=== PATIENT | female | born 1985 | race Caucasian/White ===

== ENCOUNTER → 2017-05-03 | Outpatient (CLI) | payer OTHER ==
--- NOTE | 2017-05-03 11:42 | MR ---
EXAMINATION TYPE: MR lumbar spine wo con DATE OF EXAM: 05/03/2017 COMPARISON: NONE HISTORY: Lumbago with sciatica TECHNIQUE: T1 and T2 axial and sagittal images of the lumbar spine are submitted. FINDINGS: There is no abnormal signal seen within the visualized spinal cord or paraspinal soft tissu es. At L1-2 there is no degenerative disc disease, disc herniation, canal stenosis or foraminal encroachm ent. At L2-3 there is no degenerative disc disease, disc herniation, canal stenosis or foraminal encroachm ent. At L3-4 there is no degenerative disc disease, disc herniation, canal stenosis or foraminal encroachm ent. At L4-5 there is no degenerative disc disease, disc herniation, canal stenosis or foraminal encroachm ent. At L5-S1 there is no degenerative disc disease, disc herniation, canal stenosis or foraminal encroach ment. IMPRESSION: 1. No degenerative disc disease, disc herniation, canal stenosis or foraminal encroachment.
== END | disposition home or self-care (01) ==
LOC: RADMRIMAIN 10:27
PROVIDERS: ATTEND Internal Medicine
DX: M54.40 Lumbago with sciatica, unspecified side (principal)
CPT/HCPCS: 72148

== ENCOUNTER → 2020-12-28 | Outpatient (CLI) | payer BC ==
[2020-12-28 19:39] LABS: HCT 41.8 % (37.2-46.3); HGB 14.1 g/dL (12.0-15.0); MCH 30.1 pg (27.0-32.0); MCHC 33.7 g/dL (32.0-37.0); MCV 89.1 fL (80.0-97.0); Mean Platelet Volume 11.4 fL (9.5-12.2); Platelet Count 303 X 10*3/uL (140-440); RBC 4.69 X 10*6/uL (4.10-5.20); RDW 12.2 % (11.5-14.5)
[2020-12-28 20:23] LABS: Hemoglobin A1C 4.4 % (4.0-6.0)
[2020-12-28 20:58] LABS: ALT 30 U/L (8-44); AST 29 U/L (13-35); African American GFR (CKD) 111.5 (60.0-200.0); Albumin/Globulin Ratio 2.71 (1.60-3.17); Alkaline Phosphatase 48 U/L (41-126); BUN/Creat Ratio 13.75 Ratio (12.00-20.00); C Reactive Protein <0.4 mg/dL (0.0-0.8); Calcium 9.1 mg/dL (8.7-10.3); Carbon Dioxide 24.6 mmol/L (21.6-31.8); Chloride 106 mmol/L (96-109); Creatine Kinase 125 U/L (26-186); Globulin 1.7 g/dL (1.6-3.3); Glucose 84 mg/dL (70-110); Magnesium 1.9 mg/dL (1.5-2.4); Non-African American GFR(CKD) 96.2 (60.0-200.0); Potassium 4.1 mmol/L (3.5-5.5); Sodium 140 mmol/L (135-145); Total Bilirubin 0.4 mg/dL (0.2-1.2); Total Protein 6.3 g/dL (6.2-8.2)
[2020-12-28 21:35] LABS: Erythrocyte Sedimentation Rate 4 mm/Hr (0-20)
[2020-12-29 07:35] LABS: Anti-Smith Ab Interp NEGATIVE (NEGATIVE)
[2020-12-29 13:53] LABS: Vitamin D, 1, 25-Dihydroxy 39 pg/mL (20 - 79)
== END | disposition home or self-care (01) ==
LOC: LABWHC1 10:18
PROVIDERS: ATTEND Nurse Practitioner Family
DX: M79.7 Fibromyalgia (principal); E55.9 Vitamin D deficiency, unspecified; E53.8 Deficiency of other specified B group vitamins
CPT/HCPCS: 36415; 80053; 82306; 82550; 82607; 82652; 83036; 83519; 83735; 84207; 84425; 84446; 84590; 84591; 84597; 85027; 85652; 86140; 86235

== ENCOUNTER → 2021-04-11 | Outpatient (CLI) | payer BC ==
--- NOTE | 2021-04-11 10:42 | US ---
EXAMINATION TYPE: US gallbladder DATE OF EXAM: 04/11/2021 COMPARISON: NONE CLINICAL HISTORY: K52.832 lymphocytic colitis, R19.7 acute diarrhea,. Chronic diarrhea, RUQ pain EXAM MEASUREMENTS: Liver Length: 18.1 cm Gallbladder Wall: 0.2 cm CBD: 0.5 cm Right Kidney: 10.5 x 4.1 x 4.6cm *Technical limitations due to overlying bowel content Pancreas: Obscured by bowel gas Liver: enlarged, heterogeneous Gallbladder: no evidence of stones Evidence for sonographic Vega's sign: no CBD: appears wnl as visualized Right Kidney: no evidence of hydronephrosis IMPRESSION: 1. Limited study due to overlying bowel gas. The pancreas is not visualized due to overlying bowel ga s. 2. Heterogeneous coarse appearing liver is enlarged. A CT or MRI using liver protocol with IV contras t, multiphase is recommended. 3. No gallstones. Gallbladder wall is within normal limits. No pericholecystic fluid. 4. No renal calculi or hydronephrosis of the right kidney. 5. The common duct is within normal limits. No ascites is seen.
== END | disposition home or self-care (01) ==
LOC: RADUSWWP 09:45
PROVIDERS: ATTEND Internal Medicine
DX: K52.832 Lymphocytic colitis (principal); R16.0 Hepatomegaly, not elsewhere classified
CPT/HCPCS: 76705

== ENCOUNTER → 2021-05-07 | Outpatient (CLI) | payer BC ==
--- NOTE | 2021-05-07 11:02 | MR ---
MR liver without and with contrast, MRCP HISTORY: R 10.11, K 76.0 Multiplanar multisequence and postcontrast images obtained to the liver following 10.5 cc Gadavist IV . Three-dimensional reconstructions performed through the biliary system. Correlation ultrasound gallbladder 04/11/2021 There is motion, artifact on the exam. The liver is enlarged measuring approximately 21.4 cm in cephalad to caudal dimension. Signal drop on out of phase imaging is consistent with underlying hepatic steatosis. There is no evident liver mass . Gallbladder shows no stone, there is no dilated intra or extrahepatic biliary duct. No abnormal enh ancement following contrast administration. There is no retroperitoneal adenopathy or ascites. Aorta shows normal caliber. Pancreas, adrenal glands, kidneys, spleen are within normal limits. Lung bases show no pleural effusion. Biliary system shows no filling defect to suggest stone. Visualized bone marrow signal is within norm al limits. No evident bowel obstruction. IMPRESSION: Findings consistent with hepatic steatosis. There is hepatomegaly.
== END | disposition home or self-care (01) ==
LOC: RADMRIMAIN 08:51
PROVIDERS: ATTEND Internal Medicine
DX: K76.0 Fatty (change of) liver, not elsewhere classified (principal); R16.0 Hepatomegaly, not elsewhere classified
CPT/HCPCS: 74183; A9585

== ENCOUNTER 2021-06-08 17:13 | Emergency (ER) | payer BC, OTHER ==
[2021-06-08 17:21] VITALS: BP 177/74; PULSE 96; RESP 16; TEMP 99
[2021-06-08] MEDS ORDERED: CYCLOBENZAPRINE 10 MG TAB PO STA (17:52)
--- NOTE | 2021-06-08 18:51 | XR ---
EXAMINATION TYPE: XR chest 2V DATE OF EXAM: 06/08/2021 COMPARISON: NONE HISTORY: Pain TECHNIQUE: 2 views FINDINGS: Heart and mediastinum are normal. Lungs are clear. Diaphragm is normal. Bony thorax appears normal. IMPRESSION: Normal chest.
[2021-06-08] MEDS ORDERED: CYCLOBENZAPRINE 10MG STARTER 3 TAB BTL PO STA (19:15)
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
== END 2021-06-08 19:41 | disposition home or self-care (01) ==
LOC: EC 17:13
DX: R07.89 Other chest pain (principal); F17.200 Nicotine dependence, unspecified, uncomplicated; F12.90 Cannabis use, unspecified, uncomplicated; Z88.0 Allergy status to penicillin; Z88.2 Allergy status to sulfonamides; V89.2XXA Person injured in unspecified motor-vehicle accident, traffic, initial encounter; Y92.410 Unspecified street and highway as the place of occurrence of the external cause
CPT/HCPCS: 71046; 99285

== ENCOUNTER → 2021-06-08 | Outpatient (CLI) | payer BC | LOC: LAB 08:30 | PROVIDERS: ATTEND Internal Medicine | DX: K52.832 Lymphocytic colitis (principal); K90.9 Intestinal malabsorption, unspecified; Z88.0 Allergy status to penicillin; Z88.2 Allergy status to sulfonamides; Z88.8 Allergy status to other drugs, medicaments and biological substances | CPT/HCPCS: 82656; G0328 ==

== ENCOUNTER → 2021-06-12 | Outpatient (CLI) | payer BC | END | disposition home or self-care (01) | LOC: LABWHC1 11:50 | PROVIDERS: ATTEND Nurse Practitioner Family | DX: E21.5 Disorder of parathyroid gland, unspecified (principal) | CPT/HCPCS: 36415; 83970; 84439; 84443; 84481 ==

== ENCOUNTER → 2021-06-12 | Outpatient (CLI) | payer BC | END | disposition home or self-care (01) | LOC: LABWHC1 11:51 | PROVIDERS: ATTEND Internal Medicine | DX: Z53.9 Procedure and treatment not carried out, unspecified reason (principal) ==

== ENCOUNTER → 2021-09-07 | Outpatient (CLI) | payer BC ==
--- NOTE | 2021-09-07 09:09 | MR ---
EXAMINATION TYPE: MR lumbar spine wo con DATE OF EXAM: 09/07/2021 COMPARISON: 05/03/2017 HISTORY: Radiculopathy, stiffness, pain, weakness in legs TECHNIQUE: T1 and T2 axial and sagittal images of the lumbar spine are submitted. FINDINGS: There is no abnormal signal seen within the visualized spinal cord or paraspinal soft tissu es. Cystic lesion in the left adnexa measuring 3.6 cm. At L1-2 there is no degenerative disc disease, disc herniation, canal stenosis or foraminal encroachm ent. At L2-3 there is no degenerative disc disease, disc herniation, canal stenosis or foraminal encroachm ent. At L3-4 there is no degenerative disc disease, disc herniation, canal stenosis or foraminal encroachm ent. At L4-5 there is no degenerative disc disease, disc herniation, canal stenosis or foraminal encroachm ent. At L5-S1 there is no degenerative disc disease, disc herniation, canal stenosis or foraminal encroach ment. IMPRESSION: 1. Normal MRI lumbar spine. 2. There is a 3.6 cm cystic adnexal lesion on the left recommend pelvic ultrasound.
== END | disposition home or self-care (01) ==
LOC: RADMRIMAIN 07:42
PROVIDERS: ATTEND Family Medicine
DX: M54.16 Radiculopathy, lumbar region (principal)
CPT/HCPCS: 72148

== ENCOUNTER → 2021-09-07 | Outpatient (CLI) | payer BC, OTHER ==
--- NOTE | 2021-09-07 09:15 | MR ---
EXAMINATION TYPE: MR cervical spine wo con DATE OF EXAM: 09/07/2021 COMPARISON: HISTORY: Cervical strain, inflammatory spondylopathy, stiffness, clicking, schreiber, pain TECHNIQUE: Multiplanar, multisequence images of the cervical spine were acquired without contrast. C2-C3: No evidence for degenerative disc disease. No disc bulge/herniation or protrusion. No Canal stenosis. Foramina are patent bilaterally. C3-C4: No evidence for degenerative disc disease. No disc bulge/herniation or protrusion. No Canal stenosis. Foramina are patent bilaterally. Mild uncovertebral joint hypertrophy. C4-C5: No evidence for degenerative disc disease. No disc bulge/herniation or protrusion. No Canal stenosis. Foramina are patent bilaterally. Mild uncovertebral joint hypertrophy. C5-C6: Mild bilateral uncovertebral joint hypertrophy. There is broad-based central left paracentral disc bulging but no canal stenosis, spinal cord contact or foraminal encroachment C6-C7: No evidence for degenerative disc disease. No disc bulge/herniation or protrusion. No Canal stenosis. Foramina are patent bilaterally. C7-T1: No evidence for degenerative disc disease. No disc bulge/herniation or protrusion. No Canal stenosis. Foramina are patent bilaterally. Cervical segments are intact. There is normal alignment. Cervical spinal cord is of normal signal. Craniovertebral junction relationships are within normal limits. There is a prominent cisterna magn a. IMPRESSION: 1. Mild broad-based central and left paracentral disc bulging C5-C6 with no evidence of disc herniati on, canal stenosis or foraminal encroachment. 2. Multilevel mild uncovertebral joint hypertrophy. 3. Findings suggest prominent cisterna magna or small posterior fossa arachnoid cyst. No previous MR or CT of the brain available for comparison correlate clinically. If clinically warranted consider MR I brain.
== END | disposition home or self-care (01) ==
LOC: RADMRIMAIN 07:30
PROVIDERS: ATTEND Family Medicine
DX: M50.222 Other cervical disc displacement at C5-C6 level (principal)
CPT/HCPCS: 72141

== ENCOUNTER → 2021-10-17 | Outpatient (CLI) | payer BC ==
--- NOTE | 2021-10-17 13:52 | MR ---
EXAMINATION TYPE: MR brain wo/w con DATE OF EXAM: 10/17/2021 COMPARISON: Outside MRI reports only. HISTORY: Arachnoid cyst of posterior cranial fossa TECHNIQUE: Multiplanar, multisequence images of the brain and brainstem is performed without and with IV contras t, utilizing 10 mL intravenous Gadavist . FINDINGS: Diffusion weighted images demonstrate no evidence of a recent infarct or other diffusion ab normality. There is no extra-axial fluid collection or significant white matter signal abnormality. The ventricular system and cisternal spaces are normal in size and appearance. The brain volume is age appropriate. Midline structures demonstrate normal morphology. The craniocervical junction appears within normal limits. Slight asymmetric CSF prominence central inferior left posterior fossa measuring 1.3 x 1.0 c m could reflect tiny arachnoid cyst. Post contrast images demonstrate no abnormal enhancement. The du ral venous sinuses appear patent. The visualized sinuses are clear and the globes are intact. IMPRESSION: Possible incidental tiny 1.3 cm inferior arachnoidal cyst just left of midline in the pos terior fossa.
== END | disposition home or self-care (01) ==
LOC: RADMRIMAIN 07:22
PROVIDERS: ATTEND Family Medicine
DX: G93.0 Cerebral cysts (principal)
CPT/HCPCS: 70553; A9585

== ENCOUNTER → 2021-10-17 | Outpatient (CLI) | payer BC ==
--- NOTE | 2021-10-17 08:54 | US ---
EXAMINATION TYPE: US pelvic complete DATE OF EXAM: 10/17/2021 COMPARISON: NONE CLINICAL HISTORY: G93.0 CYSTIC ADNEXAL LT ADNEXAL LESION. Oct MRI showed left 3.6cm cystic lesion, pt has h/o ovarian cysts, no pelvic pain, 2 c-sections TECHNIQUE: TA. Transabdominal sonographic images of the pelvis were acquired. Date of LMP: 10-01-2021 EXAM MEASUREMENTS: Uterus: 11.1 x 5.4 x 4.2 cm Endometrial Stripe: 1.5 cm Right Ovary: 2.9 x 2.6 x 2.3 cm Left Ovary: 2.8 x 2.4 x 2.1 cm 1. Uterus: Anteverted wnl 2. Endometrium: wnl 3. Right Ovary: wnl 4. Left Ovary: wnl 5. Bilateral Adnexa: wnl 6. Posterior cul-de-sac: wnl IMPRESSION: 1. Normal pelvic ultrasound. 2. Previous left ovarian cyst may have resolved over the interval.
== END | disposition home or self-care (01) ==
LOC: RADUSWWP 07:02
PROVIDERS: ATTEND Family Medicine
DX: Z03.89 Encounter for observation for other suspected diseases and conditions ruled out (principal)
CPT/HCPCS: 76856

== ENCOUNTER → 2022-04-26 | Outpatient (CLI) | payer OTHER ==
[2022-04-26 18:46] LABS: ALT 26 U/L (8-44); AST 18 U/L (13-35); Albumin 4.3 g/dL (3.8-4.9); Albumin/Globulin Ratio 1.95 (1.60-3.17); Alkaline Phosphatase 42 U/L (41-126); Bilirubin, Conjugated <0.20 mg/dL (0.20-0.40); C Reactive Protein <0.30 mg/dL (0.00-0.80); Erythrocyte Sedimentation Rate 1 mm/Hr (0-20); Globulin 2.2 g/dL (1.6-3.3); Total Protein 6.5 g/dL (6.2-8.2)
[2022-04-26 18:49] LABS: Basophils # (A) 0.03 X 10*3/uL (0.00-0.10); Basophils % (A) 0.3 %; Eosinophils # (A) 0.18 X 10*3/uL (0.04-0.35); Eosinophils % (A) 2.1 %; HCT 42.6 % (37.2-46.3); HGB 14.2 g/dL (12.0-15.0); Immature Grans, Automated 0.7 %; Lymphocytes # (A) 2.36 X 10*3/uL (0.90-5.00); Lymphocytes % (A) 27.3 %; MCH 30.4 pg (27.0-32.0); MCHC 33.3 g/dL (32.0-37.0); MCV 91.2 fL (80.0-97.0); Monocytes # (A) 0.81 X 10*3/uL (0.20-1.00); Monocytes % (A) 9.4 %; NRBC Per 100 WBC 0 /100 WBCS (0.0-0.0); Neutrophils % (A) 60.2 %; Platelet Count 251 X 10*3/uL (140-440); RBC 4.67 X 10*6/uL (4.10-5.20); RDW 11.9 % (11.5-14.5); WBC 8.64 X 10*3/uL (4.50-10.00)
== END | disposition home or self-care (01) ==
LOC: LABWHC1 11:11
PROVIDERS: ATTEND Internal Medicine
DX: Z51.81 Encounter for therapeutic drug level monitoring (principal); M06.09 Rheumatoid arthritis without rheumatoid factor, multiple sites; D84.9 Immunodeficiency, unspecified
CPT/HCPCS: 36415; 80076; 85025; 85652; 86140

== ENCOUNTER → 2022-05-24 | Outpatient (CLI) | payer OTHER ==
--- NOTE | 2022-05-25 02:44 | MR ---
EXAMINATION TYPE: MR femur/thigh RT wo/w con DATE OF EXAM: 05/24/2022 COMPARISON: HISTORY: Abnormal levels CK serum enzymes. Auto immune issues, Dermatomyositis, lower extremity weakn ess CONTRAST: Standard multiplanar, multisequence MRI departmental protocol images were obtained without contrast a nd with 9 mL intravenous Gadavist gadolinium contrast. Muscle bundles of the left and right thigh appear fairly symmetric and normal in size and contour. No pathologic fluid collection. No evidence of subcutaneous mass. Left and right femur appear intact. C ontrast images show no pathologic enhancement. No evidence of focal bone destruction. IMPRESSION: Negative MR scan of the right thigh.
== END | disposition home or self-care (01) ==
LOC: RADMRIMAIN 20:36
PROVIDERS: ATTEND Internal Medicine
DX: R74.8 Abnormal levels of other serum enzymes (principal); R29.898 Other symptoms and signs involving the musculoskeletal system
CPT/HCPCS: 73720; A9585

== ENCOUNTER → 2022-07-03 | Outpatient (CLI) | payer OTHER ==
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
== END | disposition home or self-care (01) ==
LOC: RADXRMAIN 10:31
PROVIDERS: ATTEND Internal Medicine
DX: M79.641 Pain in right hand (principal); M79.642 Pain in left hand; M25.561 Pain in right knee; M25.562 Pain in left knee

== ENCOUNTER → 2022-08-01 | Outpatient (CLI) | payer MEDICARE, OTHER ==
--- NOTE | 2022-08-01 10:04 | US ---
EXAMINATION TYPE: US thyroid st tissue head/neck DATE OF EXAM: 08/01/2022 COMPARISON: MRI cervical spine September 07, 2021 CLINICAL HISTORY: R22.1 LOCALIZED SWELLING, MASS AND LUMP, NECK. Swelling within right neck x 6 month s. GLAND SIZE: Right Lobe: 5.1 x 2.6 x 1.9 cm Overall Parenchyma: homogenous Left Lobe: 6.1 x 2.2 x 2.2 cm Overall Parenchyma: homogeneous Isthmus Thickness: 0.5 cm NODULES RIGHT: # of nodules measured on right: 3 1. Right isthmus/right thyroid lobe: 3.6 X 3.2 x 2.0 cm, mid-inf medial, mixed cystic and solid, iso echoic nodule, which is wider than tall, with smooth margins, without echogenic foci. TR 2 lesion. Prior size: No prior 2. 1.8 X 1.7 x 1.5 cm, lower lateral, solid or almost completely solid, isoechoic nodule, which is wider than tall, with smooth margins, without echogenic foci. TR 3 lesion. Prior size: No prior 3. 1.1 X 1.1 x 0.9 cm, lower lateral, mixed cystic and solid, isoechoic nodule, which is wider than tall, with smooth margins, without echogenic foci. TR2 lesion. Prior size: No prior LEFT: # of nodules measured on left: 2 1. 2.1 X 1.9 x 1.7 cm, lower mid-inf, solid or almost completely solid, isoechoic nodule, which is wider than tall, with smooth margins, without echogenic foci. TR3 Prior size: No prior 2. 2.3 X 1.7 x 1.1 cm, mid medial, solid or almost completely solid, isoechoic nodule, which is wi gaurang than tall, with smooth margins, without echogenic foci. TR3 Prior size: No prior ISTHMUS: # of nodules measured in the isthmus: Nodule mentioned above appears to be within isthmu s/right thyroid lobe. Bilateral neck scanned, Hypoechoic area with hyperechoic center seen right neck just inferior to the jawline measurin.6 x 2.2 x 0.8 cm. Prominent lymph node with retention of central fatty hilum but some eccentric cortical thickening IMPRESSION: Findings consistent with multinodular goiter. Follow up ultrasound scanning in one year. 2017 ACR TI-RADS LEVEL: TR-RADS 3 - Mildly Suspicious: Follow if > 1.5 cm, FNA if > 2.5 cm *Highest TI-RADS level nodule reported
== END | disposition home or self-care (01) ==
LOC: RADUSWWP 09:01
PROVIDERS: ATTEND Family Medicine
DX: E04.2 Nontoxic multinodular goiter (principal)
CPT/HCPCS: 76536

== ENCOUNTER → 2022-10-15 | Outpatient (CLI) | payer OTHER ==
[2022-10-15 18:55] LABS: Testosterone 12.1 ng/mL (9.01-47.94)
[2022-10-15 19:09] LABS: Estradiol 95.4 pg/mL; Luteinizing Hormone 4.1 mIU/mL
== END | disposition home or self-care (01) ==
LOC: LABWHC1 11:42
PROVIDERS: ATTEND Internal Medicine
DX: E55.9 Vitamin D deficiency, unspecified (principal); L65.9 Nonscarring hair loss, unspecified; E04.2 Nontoxic multinodular goiter
CPT/HCPCS: 36415; 82306; 82627; 82670; 83001; 83002; 84402; 84403; 84439; 84443

== ENCOUNTER → 2022-11-20 | Outpatient (CLI) | payer OTHER ==
--- NOTE | 2022-11-20 15:20 | US ---
EXAMINATION TYPE: US thyroid st tissue head/neck DATE OF EXAM: 11/20/2022 COMPARISON: US CLINICAL HISTORY: E04.2 Nontoxic multinodular goiter. F/U Nodules GLAND SIZE: Right Lobe: 5.7 x 1.9 x 1.9 cm Overall Parenchyma: heterogenous Left Lobe: 6.5 x 2.4 x 2.1 cm Overall Parenchyma: heterogeneous Isthmus Thickness: 0.6 cm NODULES RIGHT: # of nodules measured on right: 3 1. 3.6 X 2.0 x 2.9 cm, mid medial, mixed cystic and solid, isoechoic nodule, which is wider than ta ll, with smooth margins, without echogenic foci. Prior size: 3.6 x 2.0 x 3.2 cm 2. 1.6 X 1.5 x 1.5 cm, lower, solid or almost completely solid, isoechoic nodule, which is wider th an tall, with smooth margins, without echogenic foci. Prior size: 1.8 x 1.5 x 1.7 cm 3. 1.0 X 0.7 x 1.0 cm, mid, mixed cystic and solid, isoechoic nodule, which is wider than tall, wit h smooth margins, without echogenic foci. Prior size: 1.1 x 0.9 x 1.1 cm LEFT: # of nodules measured on left: 2 1. 2.8 X 1.7 x 2.1 cm, lower, solid or almost completely solid, isoechoic nodule, which is wider th an tall, with smooth margins, without echogenic foci. TR 3 Prior size: 2.1 x 1.7 x 1.9 cm 2. 2.2 X 1.1 x 1.8 cm, mid, solid or almost completely solid, isoechoic nodule, which is wider cindy n tall, with smooth margins, without echogenic foci. Prior size: 2.3 x 1.1 x 1.7 cm ISTHMUS: # of nodules measured in the isthmus: 0 Bilateral neck scanned, no evidence of lymphadenopathy. Normal appearing lymph node right lateral nec k. Stable nodules bilaterally with slight increase in size with left nodule lower. IMPRESSION: Mildly suspicious nodule left lobe thyroid fine-needle aspiration of the enlarging nodule is recommen ded. 2017 ACR TI-RADS LEVEL: TR-RADS 3 - Mildly Suspicious: Follow if > 1.5 cm, FNA if > 2.5 cm *Highest TI-RADS level nodule reported
== END | disposition home or self-care (01) ==
LOC: RADUSWWP 14:23
PROVIDERS: ATTEND Internal Medicine
DX: E04.2 Nontoxic multinodular goiter (principal)
CPT/HCPCS: 76536

== ENCOUNTER → 2022-11-28 | Outpatient (CLI) | payer OTHER | END | disposition home or self-care (01) | LOC: LABWHC1 15:17 | PROVIDERS: ATTEND Surgery | DX: Z86.39 Personal history of other endocrine, nutritional and metabolic disease (principal) | CPT/HCPCS: 36415; 83970 ==

== ENCOUNTER → 2022-12-10 | Outpatient (CLI) | payer OTHER ==
[2022-12-10 19:46] LABS: African American GFR (CKD) 106.7 (60.0-200.0); Albumin 4.3 g/dL (3.8-4.9); Albumin/Globulin Ratio 2.12 (1.60-3.17); Anion Gap 11.7 mmol/L (10.00-18.00); BUN/Creat Ratio 13.78 Ratio (12.00-20.00); Blood Urea Nitrogen 11.3 mg/dL (9.0-27.0); Calcium 9.2 mg/dL (8.7-10.3); Non-African American GFR(CKD) 92.1 (60.0-200.0); Potassium 4.2 mmol/L (3.5-5.5); T4, Free (Free Thyroxine) 1.09 ng/dL (0.800-1.800); Total Bilirubin 0.3 mg/dL (0.30-1.20); Total Protein 6.3 g/dL (6.2-8.2)
== END | disposition home or self-care (01) ==
LOC: LABWHC1 13:14
PROVIDERS: ATTEND Internal Medicine
DX: E04.2 Nontoxic multinodular goiter (principal); E55.9 Vitamin D deficiency, unspecified
CPT/HCPCS: 36415; 80053; 82306; 84439; 84443

== ENCOUNTER → 2023-11-21 | Outpatient (CLI) | payer OTHER ==
--- NOTE | 2023-11-22 06:17 | MR ---
EXAMINATION TYPE: MR knee RT wo con DATE OF EXAM: 11/21/2023 COMPARISON: NONE HISTORY: Right knee pain locking and swelling for at least 1 year per patient TECHNIQUE: Multiplanar, multisequence images of the knee is performed without IV contrast. FINDINGS: MEDIAL MENISCUS: Anterior and posterior horns are intact without tear. LATERAL MENISCUS: Anterior and posterior horns are intact without tear. CRUCIATE LIGAMENTS: The anterior and posterior cruciate ligaments are intact and unremarkable. COLLATERAL LIGAMENTS: The medial collateral ligament and lateral collateral ligament complex are inta ct and unremarkable. EXTENSOR MECHANISM: Visualized quadriceps and patellar tendons are intact. EFFUSION: [id number] size suprapatellar joint effusion. POPLITEAL CYST: No popliteal/adams cyst. TRICOMPARTMENT SPACES: Mild tricompartment joint space loss. No significant spurring. CARTILAGE: Tricompartmental articular cartilage is maintained. BONE MARROW SIGNAL: No focal abnormal marrow signal is appreciated. OTHER: No additional significant abnormality is appreciated. IMPRESSION: 1. No meniscal or ligamentous tear is seen. 2. Small to moderate size suprapatellar joint effusion. 3. Mild tricompartment degenerative changes.
== END | disposition home or self-care (01) ==
LOC: RADMRIMAIN 19:14
PROVIDERS: ATTEND Internal Medicine
DX: M17.11 Unilateral primary osteoarthritis, right knee (principal); M25.461 Effusion, right knee

== ENCOUNTER → 2024-06-11 | Outpatient (CLI) | payer OTHER ==
[2024-06-11 15:33] LABS: Basophils # (A) 0.04 X 10*3/uL (0.00-0.10); Basophils % (A) 0.5 %; Eosinophils % (A) 3.6 %; HCT 42.7 % (37.2-46.3); HGB 15.1 g/dL (12.0-15.0); Lymphocytes # (A) 2.33 X 10*3/uL (0.90-5.00); MCH 31.1 pg (27.0-32.0); MCHC 35.4 g/dL (32.0-37.0); MCV 87.9 FL (80.0-97.0); Monocytes # (A) 0.91 X 10*3/uL (0.20-1.00); NRBC Per 100 WBC 0 X 10*3/uL (0.00-0.01); Neutrophils # (A) 4.67 X 10*3/uL (1.80-7.70); Neutrophils % (A) 56.2 %; Platelet Count 271 X 10*3/uL (140-440); RBC 4.86 X 10*6/uL (4.10-5.20); RDW 12.2 % (11.5-14.5); WBC 8.31 X 10*3/uL (4.50-10.00)
[2024-06-11 17:54] LABS: % Iron Saturation 16.32 (12.00-45.00)
[2024-06-11 17:55] LABS: Ferritin 32.4 ng/mL (10.0-291.0); T4, Free (Free Thyroxine) 0.62 ng/dL (0.80-1.80)
== END | disposition home or self-care (01) ==
LOC: LABWHC1 11:33
PROVIDERS: ATTEND Dermatology MOHS-Micrographic Surgery
DX: L65.0 Telogen effluvium (principal)
CPT/HCPCS: 36415; 82306; 82607; 82652; 82728; 83540; 83550; 84439; 84443; 84481; 85025; 86038